=== PATIENT | female | born 1940 | race Caucasian/White ===

== ENCOUNTER 2016-03-07 11:31 | Emergency (ER) | payer MEDICARE, OTHER ==
[2016-03-07] MEDS ORDERED: ENEMA--adult 1 EACH ONE (13:03)
[2016-03-07] MEDS ORDERED: LIDOCAINE 2% UROJECT 10 ML ONE (13:33)
[2016-03-07 14:04] LABS: ABSOLUTE NEUTROPHIL COUNT 7.2 K/mm3 (1.8-7.7); BASO % 0.2 % (0.2-1.0); EOS # 0.2 (0.0-0.5); HEMATOCRIT 36.4 % (37.0-47.0); HEMOGLOBIN 11.4 gm/l (12.0-16.0); IMM NEUT% 0.2 % (0-1); LYMPH # 1.5 (1.0-4.8); LYMPH % 15.2 % (15-45); MEAN CELL VOLUME 77.9 fl (81.0-99.0); MEAN CORPUSCULAR HEMOGLOBIN 24.4 pg (27.0-31.0); MEAN CORPUSCULAR HGB CONC 31.3 g/dl (33.0-37.0); MEAN PLATELET VOLUME 10.4 fl (7.4-10.4); MONO # 0.7 (0.0-0.8); MONO % 7.4 % (4-12); PLATELET COUNT 312 K/mm3 (130-400); RED CELL DISTRIBUTION WIDTH 17.4 % (11.5-14.5)
[2016-03-07 14:16] LABS: ALBUMIN 3.5 gm/dL (3.5-5.7); CALCIUM 9.4 mg/dL (8.6-10.3)
== END 2016-03-07 15:15 | disposition home or self-care (01) ==
LOC: ED 11:31
DX: K59.00 Constipation, unspecified (principal); E11.9 Type 2 diabetes mellitus without complications; F32.9 Major depressive disorder, single episode, unspecified; H40.9 Unspecified glaucoma; Z79.899 Other long term (current) drug therapy; Z88.0 Allergy status to penicillin
CPT/HCPCS: 85025; 80053; 99283 ×2; A9270 ×2